=== PATIENT | female | born 1985 | race Caucasian/White ===

== ENCOUNTER → 2017-04-10 | Outpatient (CLI) | payer OTHER ==
--- NOTE | 2017-04-10 17:59 | XR ---
EXAMINATION TYPE: XR hand complete RT DATE OF EXAM: 04/10/2017 COMPARISON: NONE HISTORY: Laceration TECHNIQUE: 3 views FINDINGS: I see no fracture nor dislocation. Joint spaces are normal. Middle finger appears intact. T here is no sign of a foreign body. IMPRESSION: Negative right hand exam.
== END ==
LOC: RADXRMAIN 17:25
PROVIDERS: ATTEND Emergency Medicine
DX: S61.431A Puncture wound without foreign body of right hand, initial encounter (principal)

== ENCOUNTER 2017-04-12 15:01 | Emergency (ER) | payer OTHER ==
[2017-04-12] MEDS ORDERED: KETOROLAC 30 MG/ML 1 ML VIAL IM STA (15:35)
--- NOTE | 2017-04-12 15:56 | ED ---
Upper Extremity HPI - General Chief Complaint: Extremity Injury, Upper Stated Complaint: [facility]-Hand Injury Time Seen by Provider: 04/12/17 15:25 Source: patient Mode of arrival: ambulatory Limitations: no limitations - History of Present Illness Initial Comments: Patient is a 31-year-old right-handed female who presents with a chief complaint of right hand pain after a puncture wound on Saturday. Patient states that this was a work-related injury. 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 There is a small puncture wound on the dorsal aspect of the third MCP joint. Patient was initially seen by a clinic who prescribed Bactrim to her. Patient states that since that time, the pain in her hand has become worse. Patient was seen again by the same clinic today who advised the patient to come to the emergency department for consult orthopedics. Patient states that she has pain with moving her hand. She describes it as an ache. There are no other aggravating or alleviating factors. Patient has been taking Motrin for pain control but she states that this is offering minimal relief. Patient has no other complaints at this time MD Complaint: Injury to:: right Onset/Timin -: days(s) Other Extremity Injury: Hand: Right Other Injuries: none Handedness: right Place: work Improves With: none Worsens With: movement of extremity Context: other (Puncture) Associated Symptoms: denies other symptoms Treatments Prior to Arrival: NSAIDS - Related Data Previous Rx's Medication Instructions Recorded Amoxicillin/Potassium Clav 1 tab PO Q12HR #14 tab 04/12/17 [Augmentin 500-125 Tablet] traMADol HCL [Ultram] 50 mg PO Q4HR PRN #12 tab 04/12/17 Allergies Allergy/AdvReac Type Severity Reaction Status Date / Time No Known Allergies Allergy Verified 04/12/17 15:24 Review of Systems ROS Statement: Those systems with pertinent positive or pertinent negative responses have been documented in the HPI. ROS Other: All systems not noted in ROS Statement are negative. Constitutional: Denies: fever, chills Eyes: Denies: vision change ENT: Denies: ear pain, throat pain Respiratory: Denies: cough Cardiovascular: Denies: chest pain Endocrine: Denies: fatigue Gastrointestinal: Denies: abdominal pain, nausea, vomiting Genitourinary: Denies: dysuria Musculoskeletal: Denies: back pain Neurological: Denies: headache Past Medical History Past Medical History: No Reported History History of Any Multi-Drug Resistant Organisms: None Reported Past Surgical History: No Surgical Hx Reported Additional Past Surgical History / Comment(s): throat Past Psychological History: Anxiety Smoking Status: Current every day smoker Past Alcohol Use History: Occasional Past Drug Use History: None Reported General Exam Limitations: no limitations General appearance: alert, in no apparent distress Head exam: Present: atraumatic, normocephalic Eye exam: Present: normal appearance ENT exam: Present: normal exam Neck exam: Present: normal inspection Respiratory exam: Present: normal lung sounds bilaterally Cardiovascular Exam: Present: regular rate, normal rhythm, normal heart sounds GI/Abdominal exam: Present: soft. Absent: distended, tenderness Rectal exam: Present: deferred Extremities exam: Present: tenderness, other (Patient is a small puncture wound to the dorsal right third MCP joint. There is no surrounding erythema or induration. Patient does however have tenderness to palpation along the extensor sheath to about the mid forearm.) Back exam: Present: normal inspection Neurological exam: Present: alert, oriented X3 Psychiatric exam: Present: normal affect, normal mood Skin exam: Present: warm, dry, intact, normal color Course Vital Signs 04/12/17 15:20 Temperature 98.0 F Pulse Rate 91 Respiratory 18 Rate Blood Pressure 111/65 O2 Sat by Pulse 99 Oximetry Medical Decision Making - Medical Decision Making Patient is a 31-year-old right-handed female who presents with a chief complaint right hand pain. Patient had a small puncture injury at work on Saturday. Since that time she has been on Bactrim. Patient states that the pain has been worse today, she was sent over by the clinic to be evaluated by oral though. On initial examination, vital signs are stable, patient is in no acute distress. Examination of the hand does not show any erythema, or induration however exam is concerning that there is tenderness to palpation along the extensor sheath of the right hand into the right forearm. Currently, I have a page out to orthopedics to discuss this case. Patient was given Toradol for pain, I will obtain an x-ray of the right hand to evaluate for gas. Median, ulnar, and radial nerve function are intact. Pulses are strong, Refill is normal. 3:56 PM This case was discussed with Obed Helm with orthopedic surgery. It is the recommendation that the patient be switched to Augmentin, and follow up with the orthopedic surgeon on Saturday. At this time, still pending x-ray of the hand. 4:37 PM X-ray evaluation of the right hand shows no acute process. There is no acute dislocations or fractures. There is no subcutaneous gas identified. At this time, patient is stable for discharge and follow-up with orthopedic on Saturday. He'll be given contact information to call the office to confirm her appointment. Patient was prescribed Augmentin, and a short course of Ultram for pain relief. She was provided with a note for work so that she can see or feel on Saturday. At this time, all questions are answered to the best my abilities. Patient was given explicit instructions on signs and symptoms that should prompt return visit to the emergency department. She is agreeable with the current care plan. Disposition Clinical Impression: Hand pain, right Disposition: HOME SELF-CARE Condition: Good Instructions: Puncture Wound (ED) Referrals: Delta Connor DO [Primary Care Provider] - 1-2 days Marlon Helm PAC [PHYSICIAN SYSTEMS TRAINER] - 1-2 days
--- NOTE | 2017-04-12 15:57 | XR ---
EXAMINATION TYPE: XR hand complete RT DATE OF EXAM: 04/12/2017 COMPARISON: NONE HISTORY: Pain TECHNIQUE: Three views are submitted. FINDINGS: The osseous structures are intact. The joint spaces are preserved and there is no acute fracture or dislocation. IMPRESSION: 1. No definite acute fracture or dislocation if symptoms persist, follow-up study in 7 to 10 days wo uld be suggested
[2017-04-12 16:50] VITALS: BP 110/62; PULSE 87; RESP 15; TEMP 98.4
== END 2017-04-12 16:55 | disposition home or self-care (01) ==
LOC: EC 15:01
DX: M79.641 Pain in right hand (principal); F17.200 Nicotine dependence, unspecified, uncomplicated; W20.8XXA Other cause of strike by thrown, projected or falling object, initial encounter; Y99.0 Civilian activity done for income or pay
CPT/HCPCS: 73130; 99283; 96372; J1885

== ENCOUNTER 2022-05-15 10:04 | Day surgery (SDC) | payer OTHER ==
[2022-05-11 09:57] VITALS: BMI 36.0
[~2022-05-15 10:04] MED LIST: LACTATED RINGERS 1,000 ML IV SCH; LIDOCAINE 1% (10MG/ML) FOR IV START INTRADERMA PRN
[2022-05-15 11:03] VITALS: TEMP 96.9
[2022-05-15] MEDS ORDERED: PROPOFOL 10 MG/ML 20 ML VIAL IV ONE (11:15)
--- NOTE | 2022-05-15 11:18 | P.GSHP ---
History of Present Illness H&P Date: 05/15/22 Chief Complaint: colon cancer screening 36-year-old female here today for colonoscopy. Last colonoscopy 5 years ago. Family history of colon cancer in her sister at a young age. Recently found to be anemic. Here today for colonoscopy. Denies rectal bleeding or melena. Past Medical History Past Medical History: GERD/Reflux Additional Past Medical History / Comment(s): anemia History of Any Multi-Drug Resistant Organisms: None Reported Past Surgical History: No Surgical Hx Reported Additional Past Surgical History / Comment(s): throat surgery for vocal cord mass Past Anesthesia/Blood Transfusion Reactions: No Reported Reaction Past Psychological History: Anxiety Smoking Status: Current every day smoker Past Alcohol Use History: Rare Past Drug Use History: None Reported - Past Family History Sister(s) Family Medical History: Cancer Additional Family Medical History / Comment(s): colon cancer Medications and Allergies Home Medications Medication Instructions Recorded Confirmed Type Dextroamphetamine/Amphetamine 20 mg PO DAILY 04/12/17 05/11/22 History [Adderall] Ferrous Sulfate [Iron] 325 mg PO DAILY 05/11/22 05/11/22 History Nf- Control Pill 1 tab PO DAILY 05/11/22 05/11/22 History PARoxetine HCL [PARoxetine HCL CR] 25 mg PO DAILY 05/11/22 05/11/22 History Pantoprazole [Protonix] 40 mg PO DAILY 05/11/22 05/11/22 History Allergies Allergy/AdvReac Type Severity Reaction Status Date / Time No Known Allergies Allergy Verified 05/15/22 11:15 Surgical - Exam Vital Signs Temp Pulse Resp BP Pulse Ox 96.9 F L 83 16 128/70 97 05/15/22 11:02 05/15/22 11:02 05/15/22 11:02 05/15/22 11:02 05/15/22 11:02 Physical exam: General: Well-developed, well-nourished HEENT: Normocephalic, sclerae nonicteric Abdomen: Nontender, nondistended Extremities: No edema Neuro: Alert and oriented Assessment and Plan (1) Colon cancer screening Narrative/Plan: 36-year-old female high risk given family history of colon cancer. Recent findings of anemia.Will proceed with colonoscopy at this time. Current Visit: Yes Status: Acute Code(s): Z12.11 - ENCOUNTER FOR SCREENING FOR MALIGNANT NEOPLASM OF COLON SNOMED Code(s): 640194754
--- NOTE | 2022-05-15 11:30 | P.PCN ---
Date of Procedure: 05/15/22 Procedure(s) Performed: PREOPERATIVE DIAGNOSIS: Colon cancer screening, anemia POSTOPERATIVE DIAGNOSIS: Normal exam PROCEDURE: Colonoscopy ANESTHESIA: MAC SURGEON: Dylon Davison M.D. SPECIMENS: None ENDOSCOPIC PROCEDURE: The patient was placed on the endoscopy table in the left decubitus position. The Olympus colonoscope was inserted into the anus and passed under direct visualization to the base of the cecum. The appendiceal orifice was visualized. From that point the scope was slowly withdrawn inspecting all surfaces carefully. There were no neoplastic inflammatory or polypoid lesions throughout the cecum, ascending, transverse, descending, sigmoid and rectum. There was no visible diverticulosis noted. Digital rectal examination was normal. The patient was taken to the recovery room in stable condition per anesthesia guidelines. RECOMMENDATIONS: Resume diet. Repeat colonoscopy 5 years. Continue anemia workup.
[2022-05-15 11:48] VITALS: BP 131/76; PULSE 69; RESP 18
== END 2022-05-15 12:05 | disposition home or self-care (01) ==
LOC: ORWHC2ENDO 10:04
PROVIDERS: ATTEND Surgery
DX: Z12.11 Encounter for screening for malignant neoplasm of colon (principal); D50.9 Iron deficiency anemia, unspecified; F17.210 Nicotine dependence, cigarettes, uncomplicated; K21.9 Gastro-esophageal reflux disease without esophagitis; Z80.0 Family history of malignant neoplasm of digestive organs
CPT/HCPCS: 81025; 45378; J2704

== ENCOUNTER 2022-10-16 10:13 | Day surgery (SDC) | payer OTHER ==
[2022-10-16] MEDS ORDERED: LACTATED RINGERS 1,000 ML IV ONE (11:04)
[2022-10-16 11:22] VITALS: TEMP 97.3
[2022-10-16] MEDS ORDERED: PROPOFOL 10 MG/ML 20 ML VIAL IV ONE (11:33)
[2022-10-16] MEDS ORDERED: LIDOCAINE 2% INJ 20 MG/ML (2 ML VIAL) ONE (11:33)
--- NOTE | 2022-10-16 11:36 | P.GSHP ---
History of Present Illness H&P Date: 10/16/22 Chief Complaint: GERD, iron deficiency anemia 37-year-old female here for upper endoscopy. She was here in May and had a normal colonoscopy. Patient with iron deficiency anemia. History of previous EGD showing small hiatal hernia with esophagitis. Takes antiacids daily. Sometimes she has breakthrough reflux symptoms. No dysphagia. Past Medical History Past Medical History: GERD/Reflux Additional Past Medical History / Comment(s): anemia History of Any Multi-Drug Resistant Organisms: None Reported Past Surgical History: No Surgical Hx Reported Additional Past Surgical History / Comment(s): throat surgery for vocal cord mass, colonoscopy Past Anesthesia/Blood Transfusion Reactions: No Reported Reaction Smoking Status: Current every day smoker - Past Family History Sister(s) Family Medical History: Cancer Additional Family Medical History / Comment(s): colon cancer Mother Additional Family Medical History / Comment(s): by pass surgery Father Additional Family Medical History / Comment(s): by pass surgery Medications and Allergies Home Medications Medication Instructions Recorded Confirmed Type Dextroamphetamine/Amphetamine 20 mg PO DAILY 04/12/17 10/16/22 History [Adderall] PARoxetine HCL [PARoxetine HCL CR] 25 mg PO DAILY 05/11/22 10/16/22 History Pantoprazole [Protonix] 40 mg PO DAILY 05/11/22 10/16/22 History Allergies Allergy/AdvReac Type Severity Reaction Status Date / Time No Known Allergies Allergy Verified 10/16/22 11:05 Surgical - Exam Vital Signs Temp Pulse Resp BP Pulse Ox 97.3 F L 75 16 120/68 95 10/16/22 11:15 10/16/22 11:15 10/16/22 11:15 10/16/22 11:15 10/16/22 11:15 Physical exam: General: Well-developed, well-nourished HEENT: Normocephalic, sclerae nonicteric Abdomen: Nontender, nondistended Extremities: No edema Neuro: Alert and oriented Assessment and Plan (1) GERD (gastroesophageal reflux disease) Narrative/Plan: Will proceed with upper endoscopy Current Visit: Yes Status: Acute Code(s): K21.9 - GASTRO-ESOPHAGEAL REFLUX DISEASE WITHOUT ESOPHAGITIS SNOMED Code(s): 760366335
--- NOTE | 2022-10-16 11:47 | P.PCN ---
Date of Procedure: 10/16/22 Procedure(s) Performed: Preoperative Dx: GERD, anemia Postoperative Dx: Mild gastritis, small hiatal hernia, mild distal esophagitis Procedure: EGD with Bx Anesthesia: Sedation Endoscopist: Dr. Davison Specimens: Antrum, distal esophagus Endoscopic Procedure: The patient was on the endoscopy table in the left decubitus position. The Olympus gastroscope was inserted into the oropharynx and passed under direct visualization to the region of the third portion of the duodenum. From that point the scope was slowly withdrawn inspecting all surfaces carefully. There were no neoplastic inflammatory or polypoid lesions throughout the duodenum. The pylorus was widely patent. The stomach was carefully inspected. There was mild gastritis present. A biopsy of the antrum took place to rule out H. pylori. Retroflexion revealed a small sliding hiatal hernia. The GE junction was present 1.5 cm above the diaphragmatic hiatus. At the GE junction there were 2 small linear erosions measuring less than 5 mm. This was consistent with grade a esophagitis. No visible Welch's esophagus changes. Biopsies were taken. The remainder the esophagus appeared normal. The patient was then taken to the recovery room in stable condition per anesthesia guidelines. Recommendations: Continue antiacid therapy. Await biopsy results
[2022-10-16 12:11] VITALS: BP 116/65; PULSE 76; RESP 18
== END 2022-10-16 12:32 | disposition home or self-care (01) ==
LOC: ORWHC2ENDO 10:13
PROVIDERS: ATTEND Surgery
DX: K29.50 Unspecified chronic gastritis without bleeding (principal); K20.0 Eosinophilic esophagitis; K44.9 Diaphragmatic hernia without obstruction or gangrene; K21.9 Gastro-esophageal reflux disease without esophagitis; D50.9 Iron deficiency anemia, unspecified; F41.9 Anxiety disorder, unspecified; F17.200 Nicotine dependence, unspecified, uncomplicated; Z80.0 Family history of malignant neoplasm of digestive organs
CPT/HCPCS: 81025; 88305; 43239; J2704; J2001

== ENCOUNTER 2022-12-10 18:43 | Emergency (ER) | payer OTHER ==
[2022-12-10 18:48] VITALS: TEMP 97.8
[2022-12-10] MEDS ORDERED: ONDANSETRON 4 MG/2 ML VIAL IVP STA (19:24)
[2022-12-10] MEDS ORDERED: SODIUM CHLORIDE 0.9% 2,000 ML IV STA (19:24)
[2022-12-10] MEDS ORDERED: DICYCLOMINE 10 MG CAP PO STA (19:24)
[2022-12-10 20:02] LABS: Basophils % (A) 0 %; Eosinophils # (A) 0.1 k/uL (0-0.7); Eosinophils % (A) 2 %; HCT 44.1 % (34.0-46.0); HGB 14.4 gm/dL (11.4-16.0); Lymphocytes # (A) 1.6 k/uL (1.0-4.8); Lymphocytes % (A) 24 %; MCH 28.9 pg (25.0-35.0); MCHC 32.7 g/dL (31.0-37.0); MCV 88.2 fL (80.0-100.0); Monocytes # (A) 0.6 k/uL (0-1.0); Monocytes % (A) 9 %; Neutrophils # (A) 4.1 k/uL (1.3-7.7); Neutrophils % (A) 62 %; Platelet Count 343 k/uL (150-450); RDW 13.4 % (11.5-15.5); WBC 6.7 k/uL (3.8-10.6)
[2022-12-10 20:09] LABS: Appearance,Urine Cloudy (Clear); Bacteria,Urine Many /hpf; Bilirubin,Urine Negative (Negative); Blood,Urine Moderate (Negative); Color,Urine Light Yellow; Glucose,Urine (UA) Negative (Negative); Ketones,Urine Negative (Negative); Leukocyte Esterase,Urine Negative (Negative); Mucus,Urine Rare /hpf; Nitrite,Urine Negative (Negative); PH, Urine 6.5 (5.0-8.0); Protein,Urine Trace (Negative); RBC,Urine 4 /hpf (0-5); Specific Gravity,Urine 1.008 (1.001-1.035); Squamous Epithelial Cell,Urine 10 /hpf (0-4); Urobilinogen,Urine <2.0 mg/dL (<2.0); WBC,Urine 9 /hpf (0-5)
[2022-12-10 20:22] LABS: ALT 49 U/L (4-34); AST 43 U/L (14-36); African American GFR (CKD) >90 (>60 ml/min/1.73 sqM); Albumin 4.5 g/dL (3.5-5.0); Alkaline Phosphatase 101 U/L (38-126); Anion Gap 14 mmol/L; Blood Urea Nitrogen 9 mg/dL (7-17); Carbon Dioxide 22 mmol/L (22-30); Chloride 102 mmol/L (98-107); Glucose 96 mg/dL (74-99); Lipase 53 U/L (23-300); Non-African American GFR(CKD) >90 (>60 ml/min/1.73 sqM); Potassium 3.5 mmol/L (3.5-5.1); Sodium 138 mmol/L (137-145); Total Bilirubin 0.3 mg/dL (0.2-1.3); Total Protein 7.4 g/dL (6.3-8.2)
[2022-12-10] MEDS ORDERED: ONDANSETRON 4 MG ODT STARTER PACK 2 TAB BTL PO STA (21:57)
[2022-12-10] MEDS ORDERED: DIPHENOX-ATROP STARTER PACK 8 TAB BTL PO STA (21:57)
[2022-12-10] MEDS ORDERED: DIPHENOX-ATROP 2.5-0.025 MG 1 EACH TAB PO STA (21:57)
--- NOTE | 2022-12-10 22:07 | ED ---
Abdominal Pain HPI - General Chief Complaint: Abdominal Pain Stated Complaint: vomiting Time Seen by Provider: 12/10/22 18:50 Source: patient Mode of arrival: ambulatory Limitations: no limitations - History of Present Illness Initial Comments: 37-year-old female presents emergency room reporting to nausea, vomiting, abdominal pain and diarrhea. Symptom onset was on Saturday. Denies eating any tainted foods. No sick contacts with similar symptoms. Has generalized abdominal discomfort with no specific abdominal pain. No fevers. Denies bloody vomit. No concern for . Patient did take some Kaopectate at home which slow the diarrhea only mildly. No exposure to C. diff. Denies any grossly bloody stools. No other alleviating, precipitating or modifying factors - Related Data Home Medications Medication Instructions Recorded Confirmed Dextroamphetamine/Amphetamine 20 mg PO DAILY 04/12/17 10/16/22 [Adderall] PARoxetine HCL [PARoxetine HCL CR] 25 mg PO DAILY 05/11/22 10/16/22 Pantoprazole [Protonix] 40 mg PO DAILY 05/11/22 10/16/22 Previous Rx's Medication Instructions Recorded Diphenoxylate HCl/Atropine 2 tab PO QID PRN 3 Days #24 tab 12/10/22 [Lomotil 2.5-0.025 mg Tablet] Ondansetron Odt [Zofran Odt] 4 mg PO Q8HR PRN #15 tab 12/10/22 Allergies Allergy/AdvReac Type Severity Reaction Status Date / Time No Known Allergies Allergy Verified 12/10/22 18:47 Review of Systems ROS Statement: Those systems with pertinent positive or pertinent negative responses have been documented in the HPI. ROS Other: All systems not noted in ROS Statement are negative. Past Medical History Past Medical History: GERD/Reflux Additional Past Medical History / Comment(s): anemia History of Any Multi-Drug Resistant Organisms: None Reported Past Surgical History: No Surgical Hx Reported Additional Past Surgical History / Comment(s): throat surgery for vocal cord mass, colonoscopy Past Anesthesia/Blood Transfusion Reactions: No Reported Reaction Past Psychological History: Anxiety Smoking Status: Current every day smoker Past Alcohol Use History: None Reported Past Drug Use History: None Reported - Past Family History Sister(s) Family Medical History: Cancer Additional Family Medical History / Comment(s): colon cancer Mother Additional Family Medical History / Comment(s): by pass surgery Father Additional Family Medical History / Comment(s): by pass surgery General Exam Limitations: no limitations General appearance: alert, in no apparent distress Head exam: Present: atraumatic, normocephalic, normal inspection Eye exam: Present: normal appearance, PERRL, EOMI. Absent: scleral icterus, conjunctival injection, periorbital swelling ENT exam: Present: normal exam, mucous membranes moist Neck exam: Present: normal inspection. Absent: tenderness, meningismus, ly mphadenopathy Respiratory exam: Present: normal lung sounds bilaterally. Absent: respiratory distress, wheezes, rales, rhonchi, stridor Cardiovascular Exam: Present: regular rate, normal rhythm, normal heart sounds. Absent: systolic murmur, diastolic murmur, rubs, gallop, clicks GI/Abdominal exam: Present: soft, normal bowel sounds. Absent: distended, tenderness, guarding, rebound, rigid Extremities exam: Present: normal inspection, full ROM, normal capillary refill. Absent: tenderness, pedal edema, joint swelling, calf tenderness Back exam: Present: normal inspection Neurological exam: Present: alert, oriented X3, CN II-XII intact Psychiatric exam: Present: normal affect, normal mood Skin exam: Present: warm, dry, intact, normal color. Absent: rash Course Vital Signs 12/10/22 12/10/22 12/10/22 18:45 19:38 20:00 Temperature 97.8 F Pulse Rate 98 86 70 Respiratory 20 20 16 Rate Blood Pressure 123/85 116/79 115/75 O2 Sat by Pulse 98 98 98 Oximetry 12/10/22 12/10/22 22:00 22:11 Temperature Pulse Rate 78 72 Respiratory 16 16 Rate Blood Pressure 148/78 126/88 O2 Sat by Pulse 98 99 Oximetry Medical Decision Making - Medical Decision Making Was pt. sent in by a medical professional or institution (, PA, RAIL ENGINEER, urgent care, hospital, or [facility]...) When possible be specific @ -No Did you speak to anyone other than the patient for history (EMS, parent, family, police, friend...)? What history was obtained from this source @ -No Did you review nursing and triage notes (agree or disagree)? Why? @ -I reviewed and agree with nursing and triage notes Were old charts reviewed (outside hosp., previous admission, EMS record, old EKG, old radiological studies, urgent care reports/EKG's, [facility] records)? Report findings @ -No old charts were reviewed Differential Diagnosis (chest pain, altered mental status, abdominal pain women, abdominal pain men, vaginal bleeding, weakness, fever, dyspnea, syncope, headache, dizziness, GI bleed, back pain, seizure, CVA, palpatations, mental health, musculoskeletal)? @ -Differential Abdominal Pain Women: Appendicitis, Cholecystitis, diverticulosis, ischemic bowel, pancreatitis, hepa titis, UTI, gastroenteritis, AAA, incarcerated hernia, bowel obstruction, constipation, inflammatory bowel, hepatitis, peptic ulcer disease, splenic infarction, perforated viscus, vulvitis, ovarian torsion, PID, kidney stone, placenta abruption, this is not meant to be an all-inclusive list EKG interpreted by me (3pts min.). @ -Not done X-rays interpreted by me (1pt min.). @ -None done CT interpreted by me (1pt min.). @ -None done U/S interpreted by me (1pt. min.). @ -None done What testing was considered but not performed or refused? (CT, X-rays, U/S, labs)? Why? @ -Abdominal CT was considered however patient does not have any abdominal pain What meds were considered but not given or refused? Why? @ -None Did you discuss the management of the patient with other professionals (professionals i.e. , PA, RAIL ENGINEER, lab, RT, psych nurse, social science manager, combat systems operator mine warfare, teacher, us customs and border officer, rn case manager)? Give summary @ -No Was smoking cessation discussed for >3mins.? @ -No Was critical care preformed (if so, how long)? @ -No Were there social determinants of health that impacted care today? How? (Homelessness, low income, unemployed, alcoholism, drug addiction, transportation, low edu. Level, literacy, decrease access to med. care, correction, rehab)? @ -No Was there de-escalation of care discussed even if they declined (Discuss DNR or withdrawal of care, Hospice)? DNR status @ -No What co-morbidities impacted this encounter? (DM, HTN, Smoking, COPD, CAD, Can cer, CVA, ARF, Chemo, Hep., AIDS, mental health diagnosis, sleep apnea, morbid obesity)? @ -None Was patient admitted / discharged? Hospital course, mention meds given and route, prescriptions, significant lab abnormalities, going to OR and other pertinent info. @ -Upon arrival patient was placed into room 21. Thorough history of physical exam is performed. She does provide urine and stool samples. IV is established and she is given 2 L bolus normal saline. Laboratory studies are reviewed. Occult is positive. C. diff is negative. Patient was given Bentyl, Zofran and Lomotil. Reevaluation demonstrates that the diarrhea has slowed significantly. She is comfortable discharged home. She is prescribed Zofran and Lomotil. Instructed to follow up with primary care doctor in 2 to 4 days and return for any new or worsening symptoms. patient agreeable with plan she is discharged in stable condition Undiagnosed new problem with uncertain prognosis? @ -Yes Drug Therapy requiring intensive monitoring for toxicity (Heparin, Nitro, Insulin, Cardizem)? @ -No Were any procedures done? @ -No Diagnosis/symptom? @ -Acute nausea, vomiting, diarrhea Acute, or Chronic, or Acute on Chronic? @ -Acute Uncomplicated (without systemic symptoms) or Complicated (systemic symptoms)? @ -Complicated Side effects of treatment? @ -No Exacerbation, Progression, or Severe Exacerbation? @ -No Poses a threat to life or bodily function? How? (Chest pain, USA, MS, pneumonia, PE, COPD, DKA, ARF, appy, cholecystitis, CVA, Diverticulitis, Homicidal, Suicidal, threat to staff... and all critical care pts) @ -No - Lab Data Result diagrams: 12/10/22 19:24 12/10/22 19:24 Lab Results 12/10/22 12/10/22 12/10/22 Range/Units 19:24 19:24 19:24 WBC 6.7 (3.8-10.6) k/uL RBC 5.00 (3.80-5.40) m/uL Hgb 14.4 (11.4-16.0) gm/dL Hct 44.1 (34.0-46.0) % MCV 88.2 (80.0-100.0) fL MCH 28.9 (25.0-35.0) pg MCHC 32.7 (31.0-37.0) g/dL RDW 13.4 (11.5-15.5) % Plt Count 343 (150-450) k/uL MPV 7.0 Neutrophils % 62 % Lymphocytes % 24 % Monocytes % 9 % Eosinophils % 2 % Basophils % 0 % Neutrophils # 4.1 (1.3-7.7) k/uL Lymphocytes # 1.6 (1.0-4.8) k/uL Monocytes # 0.6 (0-1.0) k/uL Eosinophils # 0.1 (0-0.7) k/uL Basophils # 0.0 (0-0.2) k/uL Sodium 138 (137-145) mmol/L Potassium 3.5 (3.5-5.1) mmol/L Chloride 102 (98-107) mmol/L Carbon Dioxide 22 (22-30) mmol/L Anion Gap 14 mmol/L BUN 9 (7-17) mg/dL Creatinine 0.75 (0.52-1.04) mg/dL Est GFR (CKD-EPI)AfAm >90 (>60 ml/min/1.73 sqM) Est GFR (CKD-EPI)NonAf >90 (>60 ml/min/1.73 sqM) Glucose 96 (74-99) mg/dL Calcium 9.0 (8.4-10.2) mg/dL Total Bilirubin 0.3 (0.2-1.3) mg/dL AST 43 H (14-36) U/L ALT 49 H (4-34) U/L Alkaline Phosphatase 101 (38-126) U/L Total Protein 7.4 (6.3-8.2) g/dL Albumin 4.5 (3.5-5.0) g/dL Lipase 53 (23-300) U/L Urine Color Light Yellow Urine Appearance Cloudy H (Clear) Urine pH 6.5 (5.0-8.0) Ur Specific [place] 1.008 (1.001-1.035) Urine Protein Trace H (Negative) Urine Glucose (UA) Negative (Negative) Urine Ketones Negative (Negative) Urine Blood Moderate H (Negative) Urine Nitrite Negative (Negative) Urine Bilirubin Negative (Negative) Urine Urobilinogen <2.0 (<2.0) mg/dL Ur Leukocyte Esterase Negative (Negative) Urine RBC 4 (0-5) /hpf Urine WBC 9 H (0-5) /hpf Ur Squamous Epith Cells 10 H (0-4) /hpf Urine Bacteria Many H (None) /hpf Urine Mucus Rare H (None) /hpf Stool Occult Blood (Negative) Stool Lactoferrin (NEGATIVE) C. difficile (EIA) Intrp (Negative) 12/10/22 12/10/22 12/10/22 Range/Units 19:25 19:25 19:25 WBC (3.8-10.6) k/uL RBC (3.80-5.40) m/uL Hgb (11.4-16.0) gm/dL Hct (34.0-46.0) % MCV (80.0-100.0) fL MCH (25.0-35.0) pg MCHC (31.0-37.0) g/dL RDW (11.5-15.5) % Plt Count (150-450) k/uL MPV Neutrophils % % Lymphocytes % % Monocytes % % Eosinophils % % Basophils % % Neutrophils # (1.3-7.7) k/uL Lymphocytes # (1.0-4.8) k/uL Monocytes # (0-1.0) k/uL Eosinophils # (0-0.7) k/uL Basophils # (0-0.2) k/uL Sodium (137-145) mmol/L Potassium (3.5-5.1) mmol/L Chloride (98-107) mmol/L Carbon Dioxide (22-30) mmol/L Anion Gap mmol/L BUN (7-17) mg/dL Creatinine (0.52-1.04) mg/dL Est GFR (CKD-EPI)AfAm (>60 ml/min/1.73 sqM) Est GFR (CKD-EPI)NonAf (>60 ml/min/1.73 sqM) Glucose (74-99) mg/dL Calcium (8.4-10.2) mg/dL Total Bilirubin (0.2-1.3) mg/dL AST (14-36) U/L ALT (4-34) U/L Alkaline Phosphatase (38-126) U/L Total Protein (6.3-8.2) g/dL Albumin (3.5-5.0) g/dL Lipase (23-300) U/L Urine Color Urine Appearance (Clear) Urine pH (5.0-8.0) Ur Specific [place] (1.001-1.035) Urine Protein (Negative) Urine Glucose (UA) (Negative) Urine Ketones (Negative) Urine Blood (Negative) Urine Nitrite (Negative) Urine Bilirubin (Negative) Urine Urobilinogen (<2.0) mg/dL Ur Leukocyte Esterase (Negative) Urine RBC (0-5) /hpf Urine WBC (0-5) /hpf Ur Squamous Epith Cells (0-4) /hpf Urine Bacteria (None) /hpf Urine Mucus (None) /hpf Stool Occult Blood Positive H (Negative) Stool Lactoferrin POSITIVE A (NEGATIVE) C. difficile (EIA) Intrp Negative (Negative) Disposition Clinical Impression: Nausea and vomiting, Diarrhea, Occult blood in stools Disposition: HOME SELF-CARE Condition: Stable Instructions (If sedation given, give patient instructions): Acute Diarrhea (ED) Additional Instructions: Follow-up with primary care doctor in 2-4 days and return for any new or w orsening symptoms Prescriptions: Diphenoxylate HCl/Atropine [Lomotil 2.5-0.025 mg Tablet] 2 tab PO QID PRN 3 Days #24 tab PRN Reason: Diarrhea Ondansetron Odt [Zofran Odt] 4 mg PO Q8HR PRN #15 tab PRN Reason: Nausea Is patient prescribed a controlled substance at d/c from ED?: No Referrals: Nonstaff,Physician [Primary Care Provider] - 1-2 days Time of Disposition: 22:07
[2022-12-10 22:11] VITALS: RESP 16
[2022-12-10 22:12] VITALS: BP 126/88; PULSE 72
== END 2022-12-10 22:19 | disposition home or self-care (01) ==
LOC: EC 18:43
DX: R11.2 Nausea with vomiting, unspecified (principal); R19.7 Diarrhea, unspecified; R19.5 Other fecal abnormalities; K21.9 Gastro-esophageal reflux disease without esophagitis; F41.9 Anxiety disorder, unspecified; F17.200 Nicotine dependence, unspecified, uncomplicated; Z79.899 Other long term (current) drug therapy
CPT/HCPCS: 36415; 80053; 83690; 85025; 82272; 81001; 87324; 87045; 83630; 87046; 99284; 96374; 96361 ×3; J2405; S0119